=== PATIENT | female | born 1940 | race Caucasian/White ===

== ENCOUNTER 2018-12-01 11:26 | Emergency (ER) | payer MEDICARE ==
[2018-12-01] MEDS ORDERED: Bacitracin Zinc 1 Packet ONE (11:56)
== END 2018-12-01 12:08 | disposition home or self-care (01) ==
LOC: BURERS 11:26
DX: S01.412A Laceration without foreign body of left cheek and temporomandibular area, initial encounter (principal); W26.8XXA Contact with other sharp object(s), not elsewhere classified, initial encounter
CPT/HCPCS: 12013